=== PATIENT | male | born 1955 | race Two or more races ===

== ENCOUNTER 2018-07-22 08:15 | Outpatient (CLI) | payer OTHER | END 2018-07-22 23:59 | disposition home or self-care (01) | LOC: WOU 08:15 | PROVIDERS: ATTEND Specialist | DX: Z01.818 Encounter for other preprocedural examination (principal); N30.41 Irradiation cystitis with hematuria; Y84.2 Radiological procedure and radiotherapy as the cause of abnormal reaction of the patient, or of later complication, without mention of misadventure at the time of the procedure; Y78.1 Therapeutic (nonsurgical) and rehabilitative radiological devices associated with adverse incidents; Y92.89 Other specified places as the place of occurrence of the external cause; Z87.891 Personal history of nicotine dependence; L59.8 Other specified disorders of the skin and subcutaneous tissue related to radiation; Z85.46 Personal history of malignant neoplasm of prostate; I10 Essential (primary) hypertension | CPT/HCPCS: 71046; G0463 ==